=== PATIENT | female | born 1935 | race Caucasian/White ===

== ENCOUNTER → 2016-03-24 17:48 | Outpatient (CLI) | payer MEDICARE, BC ==
[~2016-03-24 17:48] MED LIST: CENTRUM COMPLE1 EACH PO; CLARITIN 10 MG10 MG PO; KLONOPIN1 MG PO; LEXAPRO20 MG PO; OMEPRAZOLE40 MG PO
== END | disposition home or self-care (01) ==
LOC: D.MAMMO 10:15
DX: Z12.31 Encounter for screening mammogram for malignant neoplasm of breast (principal)

== ENCOUNTER → 2017-06-30 08:21 | Outpatient (CLI) | payer MEDICARE, BC | END | disposition home or self-care (01) | LOC: D.MAMMO 08:21 | DX: Z12.31 Encounter for screening mammogram for malignant neoplasm of breast (principal) ==

== ENCOUNTER → 2018-03-19 09:49 | Outpatient (CLI) | payer MEDICARE, BC | END | disposition home or self-care (01) | LOC: D.CT 09:49 | DX: R41.3 Other amnesia (principal) ==